=== PATIENT | male | born 1985 | race Asian ===

== ENCOUNTER 2019-03-31 04:45 | Emergency (ER) | payer OTHER ==
[~2019-03-31] VITALS: Ht 167.6 cm; Wt 81.2 kg
[~2019-03-31 04:45] MED LIST: OMEPRAZOLE
[2019-03-31 04:49] VITALS: BP 162/69; PULSE 63; RESP 16; Ht 167.6 cm; Wt 81.2 kg
[2019-03-31] MEDS ORDERED: HDRP454O TOP (05:09)
[2019-03-31] MEDS ORDERED: MED4DP PO (05:09)
--- NOTE | 2019-03-31 05:12 | ERD ---
ER Documentation Chief Complaint Chief Complaint Swollen, itchy lips and upper extrimity rash. HPI 33-year-old male presenting with swelling itchy lips and arms. Patient states that this started 2 days ago. He has never had this happen before. Took Benadryl and put Abreva on the site with no alleviation's. Denies any fevers. Denies any tongue swelling or trouble swallowing. Denies other medical problems. NKDA. Surgical history denies. Social history denies ROS All systems reviewed and are negative except as per history of present illness. Medications Home Meds Active Scripts Methylprednisolone* (Medrol* DOSE PACK) 4 Mg/Dose-Pack Tab.ds.pk, 4 MG PO . DIRECTED, #1 PACKET Prov:GRANT DIETRICH PA-C 03/31/19 Hydrophilic Base* (Aquaphor*) 454 Gm-Topical Oint, 1 APPLIC TOP BID, #1 JAR Prov:GRANT DIETRICH PA-C 03/31/19 Reported Medications [Omeprazole] No Conflict Check 04/26/16 Allergies Allergies: Coded Allergies: docosanol (Verified Allergy, Unknown, 03/31/19) PMhx/Soc Medical and Surgical Hx: pt denies Surgical Hx History of Surgery: No Anesthesia Reaction: No Hx Neurological Disorder: No Hx Respiratory Disorders: No Hx Cardiac Disorders: No Hx Psychiatric Problems: No Hx Miscellaneous Medical Probl: No Hx Alcohol Use: No Hx Substance Use: No Hx Tobacco Use: No Smoking Status: Never smoker FmHx Family History: No diabetes, No coronary disease, No other Physical Exam Vitals Vital Signs Date Temp Pulse Resp B/P (MAP) Pulse Ox O2 O2 Flow FiO2 Time Delivery Rate 03/31/19 97.4 63 16 162/69 99 04:49 (100) Physical Exam GENERAL: The patient is well-appearing, well-nourished, in no acute distress HEENT: Atraumatic. Conjunctivae are pink. Pupils equal, round, and reactive to light. There is no scleral icterus. Tympanic membranes clear bilaterally. Oropharynx clear. No nystagmus or photophobia. CHEST: Clear to auscultation bilaterally. There are no rales, wheezes or rhonchi. HEART: Regular rate and rhythm. No murmurs, clicks, rubs or gallops. No S3 or S4. SKIN: Small pinpoint papules noted to arms. Mild erythema noted around the lips with some dry cracking changes noted. No swelling. Procedures/MDM MDM: Patient's exam is concerning for acute rash. I have low suspicion for parasitic, bacterial, or viral infection. I have low suspicion for anaphylaxis or allergic reaction. Patient is discharged with supportive medications and told to follow-up with primary care within 1 to 2 days for close evaluation. Patient is told symptoms change or worsen to return immediately to the ER. All questions answered at discharge Departure Diagnosis: Primary Impression: Heat rash Condition: Stable Patient Instructions: Heat Rash [Child] Referrals: [facility] YOU HAVE RECEIVED A MEDICAL SCREENING EXAM AND THE RESULTS INDICATE THAT YOU DO NOT HAVE A CONDITION THAT REQUIRES URGENT TREATMENT IN THE EMERGENCY DEPARTMENT. FURTHER EVALUATION AND TREATMENT OF YOUR CONDITION CAN WAIT UNTIL YOU ARE SEEN IN YOUR DOCTORS OFFICE WITHIN THE NEXT 1-2 DAYS. IT IS YOUR RESPONSIBILITY TO MAKE AN APPOINTMENT FOR FOLOW-UP CARE. IF YOU HAVE A PRIMARY DOCTOR --you should call your primary doctor and schedule an appointment IF YOU DO NOT HAVE A PRIMARY DOCTOR YOU CAN CALL OUR PHYSICIAN REFERRAL HOTLINE AT IF YOU CAN NOT AFFORD TO SEE A PHYSICIAN YOU CAN CHOSE FROM THE FOLLOWING [facility] [address] [facility]. [facility] [address] [facility] [facility] [address] [facility] [facility] [address] [facility]. [facility] [phone] [id number] [facility]. [facility]. [address] Additional Instructions: FOLLOW UP WITH YOUR PRIMARY CARE PHYSICIAN TOMORROW.Return to this facility if you are not improving as expected. GRANT DIETRICH PA-C Mar 31, 2019 05:12
== END 2019-03-31 05:18 | disposition home or self-care (01) ==
LOC: FTE 04:45
DX: L74.0 Miliaria rubra (principal)
CPT/HCPCS: 99283